=== PATIENT | female | born 1965 | race Caucasian/White ===

== ENCOUNTER 2018-07-07 13:29 | Outpatient (CLI) | payer OTHER ==
[2018-07-07 14:56] LABS: #Eosinphils 0.4 thou/uL (0.0-0.7); #Lymphocytes 2.4 thou/uL (1.20-3.40); #Monocytes 0.6 thou/uL (0.11-0.59); #Neutrophils 6.9 thou/uL (1.40-6.50); %Basophils 0.5 % (0.0-1.0); %Eosinophils 3.6 % (0.0-10.0); %Lymphocytes 23.6 % (21.0-51.0); %Monocytes 5.4 % (0.0-10.0); %Neutrophils 66.9 % (42.0-75.0); Hemoglobin 13.9 g/dL (12.0-16.0); Mean Corpuscular HGB CONC 33.6 g/dL (32.0-36.0); Mean Corpuscular Hemoglobin 29.3 pg (27.0-31.0); Mean Corpuscular Volume 87.2 fL (78.0-98.0); Mean Platelet Volume 7.9 fL (7.4-10.4); Platelet Count 416 thou/uL (130-400); RBC Distribution Width 11.9 % (11.5-14.5); Red Blood Cell (RBC) Count 4.76 mill/uL (4.20-5.40); White Blood Cell (WBC) Count 10.3 thou/uL (4.8-10.8)
[2018-07-07 15:24] LABS: ALT (SGPT) 20 U/L (8-55); AST (SGOT) 23 U/L (5-34); Albumin 4.3 g/dL (3.5-5.0); Alkaline Phosphatase 125 U/L (40-150); Anion Gap 12 mmol/L (10-20); BUN (Urea Nitrogen) 12 mg/dL (9.8-20.1); Bilirubin, Total 0.3 mg/dL (0.2-1.2); Calc. Creatinine Clearance 0 mL/min (70-130); Calcium 9.7 mg/dL (7.8-10.44); Carbon Dioxide 26 mmol/L (22-29); Chloride 105 mmol/L (98-107); Estimated GFR-MDRD 51; Globulin 3.4 g/dL (2.4-3.5); Glucose 112 mg/dL (70-105); Potassium 3.8 mmol/L (3.5-5.1); Protein, Total 7.7 g/dL (6.0-8.3); Sodium 139 mmol/L (136-145)
== END 2018-07-07 13:30 | disposition home or self-care (01) ==
LOC: LABBT 13:29
PROVIDERS: ATTEND Surgery
DX: Z01.812 Encounter for preprocedural laboratory examination (principal); K42.9 Umbilical hernia without obstruction or gangrene
CPT/HCPCS: 80053; 85025

== ENCOUNTER 2018-07-08 08:27 | Day surgery (SDC) | payer OTHER ==
[2018-07-07 13:46] VITALS: BMI 27.8
[2018-07-08] MEDS ORDERED: CEFAZOLIN 2 GM/50 ML BAG ONE (09:15)
--- NOTE | 2018-07-08 10:08 | HP ---
CHIEF COMPLAINT: Umbilical hernia. HISTORY: The patient is a 53-year-old female who had an open hysterectomy six months ago, developed a bulge in her navel. PAST MEDICAL HISTORY: Otherwise healthy. PAST SURGERIES: Hysterectomy. MEDICATIONS: . FAMILY HISTORY: Diabetes. SOCIAL HISTORY: Nonsmoker. Occasional alcohol. ALLERGIES: SULFA. PHYSICAL EXAMINATION: VITAL SIGNS: Height 61, weight 157, body mass index 29.6, blood pressure 120/89, pulse 76. GENERAL: Well-developed, well-nourished female in no apparent distress. HEENT: Unremarkable. LUNGS: Clear. HEART: Regular rate and rhythm. ABDOMEN: 4 cm bulge through the 2 cm defect at the umbilicus, partially reducible. EXTREMITIES: Good pulses. No pedal edema. ASSESSMENT: Umbilical hernia. PLAN: Umbilical hernia repair with mesh. CONSENT: I have discussed the planned procedure as well as risk of bleeding, infection, injury to bowel, recurrence of the hernia. She understands and gives informed consent. Job ID: [id number]
[2018-07-08] MEDS ORDERED: Bupivacaine HCl 0.5%/Epinephrine 1:200,000/PF 30 ml Vial ONE (11:38)
[2018-07-08] MEDS ORDERED: Fentanyl 100 MCG/2 ML VIAL ONE ×3 (11:42→14:37)
[2018-07-08] MEDS ORDERED: Famotidine/PF 20 mg/2ml Vial ONE (11:42)
[2018-07-08] MEDS ORDERED: Scopolamine 1.5 mg/72 hour Patch ONE (11:42)
[2018-07-08] MEDS ORDERED: Midazolam HCl 2 mg/2 ml Vial ONE (11:42)
[2018-07-08] MEDS ORDERED: Promethazine HCl 25 MG/ML VIAL ONE (13:15)
--- NOTE | 2018-07-08 14:24 | OP ---
DATE OF PROCEDURE: 07/08/2018 PREOPERATIVE DIAGNOSIS: Umbilical hernia. PROCEDURE PERFORMED: Umbilical hernia repair with mesh. INDICATIONS: This is a 53-year-old female, who has an enlarging painful umbilical hernia. FINDINGS: A 2 cm defect, 6.4 cm mesh used. DESCRIPTION OF PROCEDURE: After informed consent was obtained, the patient was taken to the operating room and given general endotracheal anesthesia, placed in supine position. Abdomen was prepped and draped in usual fashion. Local anesthesia was infiltrated subcutaneously and deep. Subumbilical incision was performed. Subcu divided sharply. Fascia grasped with two stay sutures of 0 Vicryl placed each side of midline. Midline incised. Digital palpation revealed no local adhesions. Blunt 10/12 mm trocar inserted. Pneumoperitoneum was created to a pressure of 15 mmHg. The hernia sac was dissected from surrounding subcu and skin sharply. The hernia sac excised and then a 6.4 cm Proceed mesh patch was hydrated and inserted intraabdominally. The leads were sutured to the abdominal wall with interrupted 0 Ethibond. The skin was then sutured to the abdominal wall with interrupted 3-0 Vicryl and skin closed with interrupted 4-0 Rapide. Steri-Strips applied. Sterile bandage applied. The patient tolerated the procedure well and transferred to recovery in good condition. Sponge and needle count verified correct x2. Job ID: [id number]
[2018-07-08] MEDS ORDERED: Lidocaine 1% PF 5 ML VIAL ONE (16:42)
[2018-07-08] MEDS ORDERED: Ondansetron PF 4 MG/2 ML Vial ONE (16:42)
[2018-07-08] MEDS ORDERED: Dexamethasone 20 MG/5 ML VIAL ONE (16:42)
[2018-07-08] MEDS ORDERED: PROPOFOL 200 MG/20 ML VIAL ONE (16:42)
[2018-07-08] MEDS ORDERED: HYDROcodone/Acetaminophen 5/325 mg Tablet ONE (16:47)
== END 2018-07-08 17:14 | disposition home or self-care (01) ==
LOC: SDC 08:27
PROVIDERS: ATTEND Surgery
PROC: 0WUF4JZ Supplement Abdominal Wall with Synthetic Substitute, Percutaneous Endoscopic Approach (ICD-10-PCS; principal; 2018-07-08)
DX: K42.9 Umbilical hernia without obstruction or gangrene (principal); Z90.710 Acquired absence of both cervix and uterus; Z88.2 Allergy status to sulfonamides; Z79.899 Other long term (current) drug therapy
CPT/HCPCS: 96374; J0670; J1100; J2001; J2250; J2405; J2550; J2704; J3010; S0028